=== PATIENT | male | born 1960 | race African-American/Black ===

== ENCOUNTER 2021-01-06 14:06 | Inpatient (IN) | payer BC, OTHER ==
[~2021-01-06] VITALS: Ht 187 cm; Wt 104.1 kg
[2021-01-06] MEDS ORDERED: NS IV 1000 ML 1,000 ML IV SCH ×2 (14:30→16:00)
--- NOTE | 2021-01-06 14:30 | ED General ---
General Stated Complaint: POSS DEHYDRATED,SOME BLURRY VISION Source of Information: Patient Exam Limitations: No Limitations History of Present Illness Date Seen by Provider: Jan 06, 2021 Time Seen by Provider: 14:28 Initial Comments To ER with reports that he may be dehydrated. He is from [place], traveling through here to a track meet of his vero in [facility]. He states that for the past week he has been having increased thirst and urinary frequency. He does have 1 coronary stent and had a follow-up stress test about 3 weeks ago and was told it was all normal. He has a family history of diabetes but has never been told that he has it. Timing/Duration: 1 Week Severity: Moderate Associated Systoms: No Nausea/Vomiting Allergies and Home Medications Allergies Coded Allergies: No Known Drug Allergies (Unverified , 01/06/21) Patient Home Medication List Home Medication List Reviewed: Yes Review of Systems Review of Systems Constitutional: see HPI EENTM: see HPI Respiratory: no symptoms reported Cardiovascular: no symptoms reported Genitourinary: no symptoms reported Musculoskeletal: see HPI Skin: no symptoms reported Psychiatric/Neurological: No Symptoms Reported Hematologic/Lymphatic: No Symptoms Reported Immunological/Allergic: no symptoms reported Physical Exam Vital Signs Vital Signs - First Documented 01/06/21 14:10 Temp 36.0 Pulse 87 Resp 20 B/P (MAP) 151/118 (129) Pulse Ox 96 O2 Delivery Room Air Capillary Refill : Height, Weight, BMI Height: '" Weight: lbs. oz. kg; BMI Method: General Appearance: No Apparent Distress, WD/WN Eyes: Bilateral Eye Normal Inspection, Bilateral Eye PERRL, Bilateral Eye EOMI HEENT: PERRL/EOMI, TMs Normal Neck: Full Range of Motion, Normal Inspection Respiratory: Normal Breath Sounds, No Accessory Muscle Use, No Respiratory Distress Cardiovascular: Regular Rate, Rhythm, Normal Peripheral Pulses Gastrointestinal: Normal Bowel Sounds, Non Tender, Soft Extremity: Normal Capillary Refill, Normal Inspection Neurologic/Psychiatric: Alert, Oriented x3 Skin: Normal Color, Warm/Dry Progress/Results/Core Measures Suspected Sepsis SIRS Temperature: Pulse: Respiratory Rate: Laboratory Tests 01/06/21 14:25: White Blood Count 7.4 Blood Pressure / Mean: Laboratory Tests 01/06/21 14:25: Creatinine 2.14H, Platelet Count 251, Total Bilirubin 0.9 Results/Orders Lab Results Laboratory Tests Test 01/06/21 14:20 01/06/21 14:25 Range/Units Urine Color YELLOW Urine Clarity CLEAR Urine pH 5.5 5-9 Urine Specific Mouthcard <=1.005 1.016-1.022 Urine Protein TRACE H NEGATIVE Urine Glucose (UA) 3+ H NEGATIVE Urine Ketones 1+ H NEGATIVE Urine Nitrite NEGATIVE NEGATIVE Urine Bilirubin NEGATIVE NEGATIVE Urine Urobilinogen 0.2 < = 1.0 MG/DL Urine Leukocyte Esterase NEGATIVE NEGATIVE Urine RBC (Auto) 1+ H NEGATIVE Urine RBC 0-2 /HPF Urine WBC 0-2 /HPF Urine Squamous Epithelial Cells RARE /HPF Urine Crystals NONE /LPF Urine Bacteria NEGATIVE /HPF Urine Casts NONE /LPF Urine Mucus NEGATIVE /LPF Urine Culture Indicated NO White Blood Count 7.4 4.3-11.0 10^3/uL Red Blood Count 5.03 4.30-5.52 10^6/uL Hemoglobin 14.7 13.3-17.7 g/dL Hematocrit 44 40-54 % Mean Corpuscular Volume 88 80-99 fL Mean Corpuscular Hemoglobin 29 25-34 pg Mean Corpuscular Hemoglobin Concent 33 32-36 g/dL Red Cell Distribution Width 12.1 10.0-14.5 % Platelet Count 251 130-400 10^3/uL Mean Platelet Volume 12.1 9.0-12.2 fL Immature Granulocyte % (Auto) 0 % Neutrophils (%) (Auto) 79 H 42-75 % Lymphocytes (%) (Auto) 16 12-44 % Monocytes (%) (Auto) 5 0-12 % Eosinophils (%) (Auto) 0 0-10 % Basophils (%) (Auto) 0 0-10 % Neutrophils # (Auto) 5.8 1.8-7.8 10^3/uL Lymphocytes # (Auto) 1.2 1.0-4.0 10^3/uL Monocytes # (Auto) 0.4 0.0-1.0 10^3/uL Eosinophils # (Auto) 0.0 0.0-0.3 10^3/uL Basophils # (Auto) 0.0 0.0-0.1 10^3/uL Immature Granulocyte # (Auto) 0.0 0.0-0.1 10^3/uL Sodium Level 134 L 135-145 MMOL/L Potassium Level 4.6 3.6-5.0 MMOL/L Chloride Level 93 L 98-107 MMOL/L Carbon Dioxide Level 22 21-32 MMOL/L Anion Gap 19 H 5-14 MMOL/L Blood Urea Nitrogen 18 7-18 MG/DL Creatinine 2.14 H 0.60-1.30 MG/DL Estimat Glomerular Filtration Rate 39 BUN/Creatinine Ratio 8 Glucose Level 866 *H 70-105 MG/DL Calcium Level 10.1 8.5-10.1 MG/DL Corrected Calcium 8.5-10.1 MG/DL Magnesium Level 2.7 H 1.6-2.4 MG/DL Total Bilirubin 0.9 0.1-1.0 MG/DL Aspartate Amino Transf (AST/SGOT) 14 5-34 U/L Alanine Aminotransferase (ALT/SGPT) 27 0-55 U/L Alkaline Phosphatase 91 40-136 U/L Total Protein 8.4 H 6.4-8.2 GM/DL Albumin 4.8 H 3.2-4.5 GM/DL Beta-Hydroxybutyrate (Chem panel) 2.33 H 0.00-0.27 MMOL/L My Orders Orders - ADIEL ARTEAGA APRN Cbc With Automated Diff (01/06/21 14:19) Comprehensive Metabolic Panel (01/06/21 14:19) Ua Culture If Indicated (01/06/21 14:19) Ed Iv/Invasive Line Start (01/06/21 14:19) Magnesium (01/06/21 14:19) Ns Iv 1000 Ml (Sodium Chloride 0.9%) (01/06/21 14:30) Beta Hydroxybutyrate (01/06/21 14:31) Hemoglobin A1c (01/06/21 14:31) Vital Signs/I&O 01/06/21 14:10 Temp 36.0 Pulse 87 Resp 20 B/P (MAP) 151/118 (129) Pulse Ox 96 O2 Delivery Room Air Capillary Refill : Departure Impression Primary Impression: Hyperglycemia due to diabetes mellitus Disposition: ADMITTED INPATIENT Condition: Stable Admissions Decision to Admit Reason: Admit from ER (General) Decision to Admit/Date: Jan 06, 2021 Time/Decision to Admit Time: 15:06 Departure-Patient Inst. Referrals: NO,LOCAL PHYSICIAN (PCP/Family) Primary Care Physician ADIEL ARTEAGA APRN Jan 06, 2021 14:30
[2021-01-06 14:33] LABS: BILIRUBIN,URINE NEGATIVE (NEGATIVE); CLARITY,URINE CLEAR; COLOR,URINE YELLOW; GLUCOSE, URINE (UA) 3+ (NEGATIVE); KETONES,URINE 1+ (NEGATIVE); LEUKOCYTE ESTERASE ,URINE NEGATIVE (NEGATIVE); NITRITE,URINE NEGATIVE (NEGATIVE); PH,URINE 5.5 (5-9); PROTEIN,URINE TRACE (NEGATIVE)
[2021-01-06 14:37] LABS: BASOPHILS % (AUTO) 0 % (0-10); EOSINOPHILS % (AUTO) 0 % (0-10); HEMATOCRIT 44 % (40-54); HEMOGLOBIN 14.7 g/dL (13.3-17.7); LYMPHOCYTES # (AUTO) 1.2 10^3/uL (1.0-4.0); LYMPHOCYTES % (AUTO) 16 % (12-44); MEAN CORPUSCULAR HEMOGLOBIN 29 pg (25-34); MEAN CORPUSCULAR HGB CONC 33 g/dL (32-36); MEAN CORPUSCULAR VOLUME 88 fL (80-99); MEAN PLATELET VOLUME 12.1 fL (9.0-12.2); MONOCYTES # (AUTO) 0.4 10^3/uL (0.0-1.0); MONOCYTES % (AUTO) 5 % (0-12); NEUTROPHILS # (AUTO) 5.8 10^3/uL (1.8-7.8); NEUTROPHILS % (AUTO) 79 % (42-75); PLATELET COUNT 251 10^3/uL (130-400); WHITE BLOOD COUNT 7.4 10^3/uL (4.3-11.0)
[2021-01-06 14:39] LABS: BACTERIA,URINE NEGATIVE /HPF; RBC,URINE 0-2 /HPF; SQUAMOUS EPITHELIAL CELL,UR RARE /HPF; WBC,URINE 0-2 /HPF
[2021-01-06 14:50] LABS: ALBUMIN 4.8 GM/DL (3.2-4.5)
[2021-01-06 14:51] LABS: CHLORIDE 93 MMOL/L (98-107); POTASSIUM 4.6 MMOL/L (3.6-5.0); SODIUM 134 MMOL/L (135-145)
[2021-01-06 14:52] LABS: CALCIUM 10.1 MG/DL (8.5-10.1)
[2021-01-06 14:53] LABS: TOTAL PROTEIN 8.4 GM/DL (6.4-8.2)
[2021-01-06 14:54] LABS: CARBON DIOXIDE 22 MMOL/L (21-32)
[2021-01-06 14:55] LABS: BILIRUBIN,TOTAL 0.9 MG/DL (0.1-1.0)
[2021-01-06 14:56] LABS: ALKALINE PHOSPHATASE 91 U/L (40-136)
[2021-01-06 14:57] LABS: CREATININE SERUM 2.14 MG/DL (0.60-1.30); GFR ESTIMATED 39
[2021-01-06 14:58] LABS: BUN/CREATININE RATIO 8
[2021-01-06 14:59] LABS: GLUCOSE 866 MG/DL (70-105); MAGNESIUM 2.7 MG/DL (1.6-2.4)
[2021-01-06 15:00] LABS: ALANINE AMINOTRANSFERASE 27 U/L (0-55)
[2021-01-06] MEDS ORDERED: inSUlin (REGULAR) HUMAN 1 UNIT/0.01 ML (CHARGE PER UNIT) IV ONE (15:15)
[2021-01-06] MEDS ORDERED: LACTATED RINGERS 1,000 ML IV SCH (15:30)
[2021-01-06] MEDS ORDERED: ONDANSETRON 4 MG/2 ML (SDV) Z0FRAN IVP PRN (16:00)
[2021-01-06 16:21] LABS: HEMOGLOBIN 14.6 g/dL (13.3-17.7); WHITE BLOOD COUNT 7.3 10^3/uL (4.3-11.0)
[2021-01-06] MEDS: 1/2 NS IV SOLUTION 1,000 ML IV SCH ×2 (16:39→20:52)
[2021-01-06] MEDS: ENOXAPARIN 40 MG/0.4 ML (LOVENOX) SYR SC SCH (16:39)
[2021-01-06] MEDS: POTASSIUM CL 10MEQ/50ML IVPB 50 ML IV SCH ×4 (16:39→23:03)
[2021-01-06 19:21] LABS: POTASSIUM 4.4 MMOL/L (3.6-5.0)
[2021-01-06 19:27] LABS: CREATININE SERUM 1.58 MG/DL (0.60-1.30)
[2021-01-06 21:21] LABS: BUN/CREATININE RATIO 9; CALCIUM 9.9 MG/DL (8.5-10.1); CARBON DIOXIDE 23 MMOL/L (21-32); CHLORIDE 104 MMOL/L (98-107); CREATININE SERUM 1.43 MG/DL (0.60-1.30); GFR ESTIMATED > 60; GLUCOSE 277 MG/DL (70-105); SODIUM 140 MMOL/L (135-145)
[2021-01-06] MEDS: D5 1/2 NS 1000 ML IV SOLUTION 1,000 ML IV SCH (21:46)
[2021-01-07] MEDS: 1/2 NS IV SOLUTION 1,000 ML IV SCH ×2 (00:11→04:34)
[2021-01-07] MEDS: POTASSIUM CL 10MEQ/50ML IVPB 50 ML IV SCH ×2 (01:13→03:09)
[2021-01-07] MEDS: D5 1/2 NS 1000 ML IV SOLUTION 1,000 ML IV SCH (02:06)
[2021-01-07 04:16] LABS: BASOPHILS % (AUTO) 1 % (0-10); EOSINOPHILS % (AUTO) 0 % (0-10); HEMATOCRIT 42 % (40-54); HEMOGLOBIN 13.5 g/dL (13.3-17.7); LYMPHOCYTES % (AUTO) 27 % (12-44); MEAN CORPUSCULAR HEMOGLOBIN 29 pg (25-34); MEAN CORPUSCULAR HGB CONC 33 g/dL (32-36); MEAN CORPUSCULAR VOLUME 89 fL (80-99); MEAN PLATELET VOLUME 11.9 fL (9.0-12.2); MONOCYTES # (AUTO) 0.7 10^3/uL (0.0-1.0); MONOCYTES % (AUTO) 10 % (0-12); NEUTROPHILS # (AUTO) 4.4 10^3/uL (1.8-7.8); NEUTROPHILS % (AUTO) 61 % (42-75); PLATELET COUNT 205 10^3/uL (130-400); WHITE BLOOD COUNT 7.2 10^3/uL (4.3-11.0)
[2021-01-07 04:38] LABS: BUN/CREATININE RATIO 9; CALCIUM 9.1 MG/DL (8.5-10.1); CARBON DIOXIDE 23 MMOL/L (21-32); CHLORIDE 106 MMOL/L (98-107); GFR ESTIMATED > 60; GLUCOSE 136 MG/DL (70-105); MAGNESIUM 2.1 MG/DL (1.6-2.4); PHOSPHORUS 2.6 MG/DL (2.3-4.7); POTASSIUM 3.3 MMOL/L (3.6-5.0); SODIUM 140 MMOL/L (135-145)
--- NOTE | 2021-01-07 05:50 | Pulmonary Consultation ---
History of Present Illness History of Present Illness Date Seen by Provider: Jan 07, 2021 Time Seen by Provider: 05:49 Date of Admission History of Present Illness 61yo with hx of CAD presented to ED secondary to worsening fatigue, malaise and found to be in acute DKA with dehydration upon ED admission. He was travelling from [place], [place] to [facility] to visit his grandson and on the way back came to [place] to visit his daughter who runs track. He was in the hotel room and stating he just felt totally drained so his and daughter brought him to the ER for evaluation. He also states he has been incredibly thristy for the past few weeks and had been urinating more but thought it was due to all the water intake. On arrival he had a BS of over 800 and was in DKA. He was admitted to the ICU for insulin gtt and is doing well now. Allergies and Home Medications Allergies Coded Allergies: Penicillins (Verified Allergy, Unknown, 01/06/21) Home Medications Insulin Glargine,Hum.rec.anlog 100 Unit/1 Ml Insuln.pen, 10 UNIT SQ DAILY Prescribed by: RANDA DAILY on 01/08/21 0903 Metformin HCl 500 Mg Tablet, 500 MG PO DAILY@07 Prescribed by: RANDA DAILY on 01/08/21 0903 Past Qvcdpme-Mzkjjj-Lfvcfl Hx Patient Social History Alcohol Use: Denies Use Smoking Status: Never a Smoker 2nd Hand Smoke Exposure: No Recent Infectious Disease Expo: No Recent Hopitalizations: No Immunizations Up To Date Date of Influenza Vaccine: Jul 28, 2020 Seasonal Allergies Seasonal Allergies: No Past Medical History Surgeries: Yes (cardiac stent x 1 12 years ago, knee scope) Coronary Stent Respiratory: No Cardiac: Yes Coronary Artery Disease Neurological: No Genitourinary: No Gastrointestinal: No Musculoskeletal: Yes Arthritis, Chronic Back Pain Endocrine: No HEENT: No Cancer: No Psychosocial: No Integumentary: No Review of Systems Time Seen by Provider: 05:49 Sepsis Event Evaluation Height, Weight, BMI Height: '" Weight: lbs. oz. kg; 27.65 BMI Method: Exam Exam Vital Signs Date Time Temp Pulse Resp B/P (MAP) Pulse Ox O2 Delivery O2 Flow Rate FiO2 01/07/21 05:00 71 17 131/88 (102) Room Air 01/07/21 04:00 73 18 150/95 (113) Room Air 01/07/21 03:50 Room Air 01/07/21 03:00 72 20 134/87 (103) Room Air 01/07/21 02:00 73 20 146/96 (113) Room Air 01/07/21 01:00 80 18 132/91 (105) Room Air 01/07/21 01:00 81 01/07/21 00:15 Room Air 01/07/21 00:00 79 20 146/92 (110) Room Air 01/06/21 23:03 36.6 01/06/21 23:00 86 19 147/95 (112) Room Air 01/06/21 22:00 87 17 156/111 (126) Room Air 01/06/21 21:00 86 17 142/96 (111) Room Air 01/06/21 20:29 36.3 01/06/21 20:00 Room Air 01/06/21 20:00 93 24 145/101 (116) Room Air 01/06/21 19:00 91 01/06/21 19:00 91 24 143/93 (110) Room Air 01/06/21 18:00 98 33 135/98 (110) Room Air 01/06/21 17:00 81 33 132/86 (101) Room Air 01/06/21 16:15 84 01/06/21 16:00 87 13 119/94 (102) Room Air 01/06/21 16:00 96 Room Air 01/06/21 15:45 93 13 123/87 (99) Room Air 01/06/21 15:37 36.0 96 18 116/90 96 Room Air 01/06/21 14:10 36.0 87 20 151/118 (129) 96 Room Air I & O 01/07/21 07:00 Intake Total 2060 ml Output Total 1050 ml Balance 1010 ml Height & Weight Height: '" Weight: lbs. oz. kg; 27.65 BMI Method: General Appearance: No Apparent Distress, WD/WN HEENT: PERRL/EOMI, TMs Normal Neck: Full Range of Motion, Normal Inspection Respiratory: Normal Breath Sounds, No Accessory Muscle Use, No Respiratory Distress Cardiovascular: Regular Rate, Rhythm, Normal Peripheral Pulses Capillary Refill: Less Than 3 Seconds Extremity: Normal Capillary Refill, Normal Inspection Neurologic/Psychiatric: Alert, Oriented x3 Skin: Normal Color, Warm/Dry Results Lab Laboratory Tests 01/06/21 14:25 01/06/21 16:15 01/06/21 19:00 01/06/21 20:59 01/07/21 03:36 Assessment/Plan Assessment/Plan Acute DKA - New onset DM -Give Levemir and D/C insulin gtt 2 hrs after -Monitor Accu checks -Education -Advance diet as tolerated Hypokalemia -Replace Hx of CAD with stent placement. LIZETTE PEREZ DO Jan 07, 2021 05:50
[2021-01-07] MEDS ORDERED: POTASSIUM CL 10MEQ/50ML IVPB 50 ML IV SCH (06:00)
[2021-01-07] MEDS: inSUlin ASPART (NovoLOG) 1 UNIT/0.01 ML (CHARGE PER UNIT) SC SCH ×4 (06:19→21:24)
--- NOTE | 2021-01-07 06:19 | Diagnostic Imaging Report ---
EXAMINATION: Portable erect AP chest at 4:09 AM INDICATION: Diabetic ketoacidosis There are no prior studies available for comparison. The heart size is within normal limits. The perihilar markings are somewhat prominent but there is no evidence for failure, pneumonia or for pleural effusion. The mediastinum is not widened. The osseous structures are intact. External cardiac monitoring electrodes are noted. IMPRESSION: There is no evidence for active disease. Dictated by: Dictated on workstation # [id number]
[2021-01-07] MEDS ORDERED: KCL 20 MEQ TAB (K-DUR) PO ONE (07:45)
[2021-01-07] MEDS: PANTOPRAZOLE 40 MG (PROTONIX) TAB PO SCH (09:06)
--- NOTE | 2021-01-07 10:15 | History & Physical-Hospitalist ---
History of Present Illness HPI/Chief Complaint Pt is a 60yoM with a PMH of HLD who presented to the Er due to malaise and was found to be in DKA with newly diagnosed IDDMII. He reports not feeling well for a few weeks and even had a stress test three weeks ago to work this up. He reports that it was normal. He scheduled follow up with his PCP for 01/09. He was travelling from [place], [place] to [facility] to visit his grandson and on the way back came to [place] to visit his daughter who runs track. He was in the hotel room and stating he just felt totally drained so his and daughter brought him to the ER for evaluation. He also states he has been incredibly thristy for the past few weeks and had been urinating more but thought it was due to all the water intake. On arrival he had a BS of over 800 and was in DKA. He was admitted to the ICU for insulin gtt and is doing well now. He has no complaints today and feels much better. Source: patient Date Seen 01/07/21 Time Seen by a Provider: 11:45 Attending Physician Germaine Sanders MD PCP No,Local Physician Referring Physician Date of Admission Jan 06, 2021 at 15:14 Home Medications & Allergies Home Medications Reviewed patient Home Medication Reconciliation performed by pharmacy medication reconciliations nuclear technician and/or nursing. Patients Allergies have been reviewed. Allergies Allergies Coded Allergies Penicillins (Verified Allergy, Unknown, 01/06/21) Patient Social History Marrital Status: Tobacco Use?: No Smoking Status: Never a Smoker Immunizations Up To Date Influenza Vaccine Up-to-Date: Yes; Up-to-Date First/Initial COVID19 Vaccinat: none Second COVID19 Vaccination Reginald: none Current Status Primary Language: Maltese Past Medical History HLD Stress test 11/2020- normal Review of Systems Constitutional: No chills, No diaphoresis; malaise EENTM: other (dry mouth) Respiratory: No cough, No short of breath Cardiovascular: No chest pain, No edema, No palpitations Gastrointestinal: No abdominal pain, No constipation, No diarrhea, No nausea, No vomiting Genitourinary: frequency Musculoskeletal: no symptoms reported Skin: no symptoms reported Psychiatric/Neurological: No Symptoms Reported Physical Exam Physical Exam Vital Signs Vital Signs - First Documented 01/06/21 14:10 Temp 36.0 Pulse 87 Resp 20 B/P (MAP) 151/118 (129) Pulse Ox 96 O2 Delivery Room Air Capillary Refill : Less Than 3 Seconds Height, Weight, BMI Height: '" Weight: lbs. oz. kg; 27.65 BMI Method: General Appearance: No Apparent Distress, WD/WN HEENT: PERRL/EOMI, Moist Mucous Membranes Neck: Normal Inspection, Supple Respiratory: Lungs Clear, No Accessory Muscle Use, No Respiratory Distress Cardiovascular: Regular Rate, Rhythm, No Murmur Gastrointestinal: Normal Bowel Sounds, Non Tender, Soft Extremity: Normal Capillary Refill, No Calf Tenderness, No Pedal Edema Neurologic/Psychiatric: Alert, Oriented x3, Normal Mood/Affect Skin: Normal Color, Warm/Dry Results Results/Procedures Labs Laboratory Tests 01/06/21 14:25 01/06/21 16:15 01/06/21 19:00 01/06/21 20:59 01/07/21 03:36 Patient resulted labs reviewed. Imaging: Reviewed Imaging Report Imaging [facility] [place] NAME: JOAQUÍN MIRANDA [facility] REC#: [id number] PT STATUS: ADM IN : 1960 PHYSICIAN: LIZETTE PEREZ DO ADMIT DATE: 01/06/21/ICU Signed Date of Exam:01/07/21 CHEST 1 VIEW, AP/PA ONLY EXAMINATION: Portable erect AP chest at 4:09 AM INDICATION: Diabetic ketoacidosis There are no prior studies available for comparison. The heart size is within normal limits. The perihilar markings are somewhat prominent but there is no evidence for failure, pneumonia or for pleural effusion. The mediastinum is not widened. The osseous structures are intact. External cardiac monitoring electrodes are noted. IMPRESSION: There is no evidence for active disease. Dictated by: Dictated on workstation # [id number] Dict: 01/07/21602 Trans: 01/07/211101 FAWN [id number] Interpreted by: PRASHANT SPIVEY MD Electronically signed by: PRASHANT SPIVEY MD 01/07/21 1102 Assessment/Plan Admission Diagnosis DKA Admission Status: Inpatient Order (span 2 midnights) Reason for Inpatient Admission: see below Assessment and Plan DKA Newly diagnosed IDDMII BS 866 on arrrival with acidosis and betahydroxybutrate at 2.33 Admitted to ICU on insulin gtt Gap nose closed and no longer acidotic BS better controlled as well Transition to bolus insulin with SSI and Levemir A1c pending BMP this afternoon to make sure progressing well Hopefully home tomorrow if doing ok Patient education will be needed for insulin and DM education GINA Likely due to dehydration Resolved with IVF HTN HLD Resume home Iisinopril and rosuvastatin trend BP DVT ppx: Lovenox Diagnosis/Problems Diagnosis/Problems (1) DKA, type 2 Status: Acute Qualifiers: Diabetes mellitus complication detail: without coma Qualified Codes: E11.10 - Type 2 diabetes mellitus with ketoacidosis without coma (2) Newly diagnosed diabetes Status: Acute (3) Essential (primary) hypertension Status: Chronic (4) HLD (hyperlipidemia) Status: Chronic Qualifiers: Hyperlipidemia type: unspecified Qualified Codes: E78.5 - Hyperlipidemia, unspecified GERMAINE SANDERS MD Jan 07, 2021 10:15
[2021-01-07] MEDS ORDERED: lisINopril 20 MG (PRINIVIL) TABLET PO ONE (12:00)
[2021-01-07 12:39] LABS: CHLORIDE 98 MMOL/L (98-107); POTASSIUM 3.9 MMOL/L (3.6-5.0); SODIUM 134 MMOL/L (135-145)
[2021-01-07 12:40] LABS: CALCIUM 9.1 MG/DL (8.5-10.1); GLUCOSE 290 MG/DL (70-105)
[2021-01-07 12:42] LABS: CARBON DIOXIDE 23 MMOL/L (21-32)
[2021-01-07 12:44] LABS: CREATININE SERUM 1.28 MG/DL (0.60-1.30); GFR ESTIMATED > 60
[2021-01-07 12:45] LABS: BUN/CREATININE RATIO 9
[2021-01-07] MEDS: ENOXAPARIN 40 MG/0.4 ML (LOVENOX) SYR SC SCH (15:59)
[2021-01-07] MEDS ORDERED: ROSUVASTATIN 20 MG (CRESTOR) TABLET PO SCH (21:00)
[2021-01-08] MEDS: inSUlin ASPART (NovoLOG) 1 UNIT/0.01 ML (CHARGE PER UNIT) SC SCH (06:44)
[2021-01-08] MEDS ORDERED: metFORMIN 500 MG (GLUCOPHAGE) TAB PO ONE (08:00)
[2021-01-08] MEDS ORDERED: lisINopril 20 MG (PRINIVIL) TABLET PO SCH (09:00)
[2021-01-08] MEDS ORDERED: METF-397 PO (09:03)
[2021-01-08] MEDS ORDERED: INSU100I10 SQ (09:03)
[2021-01-08] MEDS: PANTOPRAZOLE 40 MG (PROTONIX) TAB PO SCH (09:17)
[2021-01-08 09:55] VITALS: BP 176/87
[2021-01-09] MEDS ORDERED: metFORMIN 500 MG (GLUCOPHAGE) TAB PO SCH (07:00)
--- NOTE | 2021-01-10 04:33 | Physician Query Clarification ---
[id number] GINA Abbreviation Admission/Discharge Admission Date: Jan 06, 2021 at 15:14 Discharge Date: Jan 08, 2021 at 09:55 GERMAINE Gay MD The medical record reflects the following clinical scenario: History/Risk factors: 60 y/o male patient presented with DKA with newly diagnosed IDDM II, GINA due to dehydration documented in medical record. Clinical Findings: creatinine- 2.18 H, Na- 134 L Treatment: Levimer, IV fluids. Question: Please clarify the abbreviation of GINA documented in [list source document(s)]. Please document a response in the Progress Notes or Discharge Summary. 1. GINA meaning - Acute Kidney Injury 2. GINA meaning - Acute Kidney Insufficiency 3. Other, with explanation of the clinical findings. 4. Clinically undetermined, no explanation for the clinical findings. PHYSICIAN RESPONSE Clarify GINA abbreviation.: 1 Please remember a lack of response to the above will prompt a phone page by CDI/Coding staff. In responding to this query, please exercise your independent professional judgment. The purpose of this communication is to more accurately reflect the complexity of your patients condition. The fact that a question is asked does not imply that any particular answer is desired or expected. Thank you for your timely response to this clarification. Requestors name: [ ] Phone # [ ] THIS PHYSICIAN QUERY FORM IS A PERMANENT PART OF THE MEDICAL RECORD HENRIK POLLACK Jan 10, 2021 04:33 GERMAINE CATES MD Jan 15, 2021 19:59
== END 2021-01-08 09:55 | disposition home or self-care (01) | DRG 638 ==
LOC: ER 14:08 → ICU 15:14 → 4TH 01-07 13:50
PROVIDERS: ADMIT Family Medicine; ATTEND Family Medicine
DX: E11.10 Type 2 diabetes mellitus with ketoacidosis without coma (principal); N17.9 Acute kidney failure, unspecified; Z88.0 Allergy status to penicillin; I25.10 Atherosclerotic heart disease of native coronary artery without angina pectoris; G89.29 Other chronic pain; M54.9 Dorsalgia, unspecified; Z95.5 Presence of coronary angioplasty implant and graft; E87.6 Hypokalemia; M19.90 Unspecified osteoarthritis, unspecified site; E86.0 Dehydration; I10 Essential (primary) hypertension; E78.5 Hyperlipidemia, unspecified; Z79.4 Long term (current) use of insulin
CPT/HCPCS: 36415; 71045; 80048; 80053; 81000; 82010; 82962; 83036; 83735; 84100; 85025; 85027; 87081; 96361; 96365